=== PATIENT | male | born 1990 | race Caucasian/White ===

== ENCOUNTER 2021-05-14 02:08 | Emergency (ER) | payer OTHER ==
[~2021-05-14 02:08] MED LIST: BACLOFEN 10MG T10 MG PO; FLEXERIL10 MG PO; MEDROL 4MG DOSEP4 MG PO; NAPROXEN500 MG PO; NORCO 5-325 TA1 EACH PO; PREDNISONE 20MG20 MG PO; VOLTAREN **OUT75 MG PO
[2021-05-14 03:09] LABS: ALBUMIN 4.1 g/dL (3.4-5.0); BILIRUBIN - TOTAL 0.2 mg/dL (0.2-1.0); BUN/CREAT RATIO (CALC) 18.9 RATIO; CREATININE 0.74 mg/dL (0.67-1.17); GLOBULIN (CALCULATION) 3.5 g/dL; POTASSIUM 3.6 mmol/L (3.5-5.1); TOTAL PROTEIN 7.6 g/dL (6.4-8.2)
[2021-05-14 03:10] LABS: BASOPHIL 0.7 % (0-2); EOSINOPHIL 2.6 % (0-5); HCT 45.8 % (42.0-52.0); LYMPHOCYTE 32.9 % (15-48); MCH 32.7 pg (25.0-31.0); MCHC 34.9 g/dL (32.0-36.0); MCV 93.5 fL (78.0-100.0); MONOCYTE 7.6 % (0-12); MPV 12.4 fL (6.0-9.5); NEUTROPHIL 55.7 % (41-80); NRBC 0; PLT 198 K/uL (150-400); RDW 11.9 % (11.5-14.0); WBC 10.2 K/uL (4.0-10.5)
[2021-05-14 03:10] LABS: BILIRUBIN NEGATIVE (NEGATIVE); BLOOD NEGATIVE Ery/uL (NEGATIVE); CLARITY CLEAR (CLEAR); COLOR YELLOW (YELLOW); GLUCOSE (U) NORMAL (NORMAL); LEUKOCYTES NEGATIVE Leu/uL (NEGATIVE); NITRITE NEGATIVE (NEGATIVE); PROTEIN NEGATIVE (NEGATIVE); SPECIFIC GRAVITY <=1.005 (1.001-1.030); UROBILINOGEN 0.2 mg/dL (0.2-1.0)
[2021-05-14 03:14] LABS: AMPHETAMINES NEGATIVE (NEGATIVE); BARBITURATES NEGATIVE (NEGATIVE); ECSTASY (MDMA) NEGATIVE (NEGATIVE); MARIJUANA (THC) NEGATIVE (NEGATIVE); METHADONE NEGATIVE (NEGATIVE); OPIATES NEGATIVE (NEGATIVE); OXYCODONE NEGATIVE (NEGATIVE)
== END 2021-05-14 05:35 | disposition left against medical advice (07) ==
LOC: FER 02:08
PROVIDERS: Emergency Medicine Emergency Medical Services
DX: S00.03XA Contusion of scalp, initial encounter (principal); S40.212A Abrasion of left shoulder, initial encounter; S80.211A Abrasion, right knee, initial encounter; F17.210 Nicotine dependence, cigarettes, uncomplicated; F10.129 Alcohol abuse with intoxication, unspecified; Z53.8 Procedure and treatment not carried out for other reasons; Y90.8 Blood alcohol level of 240 mg/100 ml or more; Y04.0XXA Assault by unarmed brawl or fight, initial encounter
CPT/HCPCS: 36415; 70450; 71045; 72125; 73030; 73564; 80053; 80305; 81003; 85025; G0480; J3411; J3475; J7030